=== PATIENT | male | born 1990 | race Caucasian/White ===

== ENCOUNTER 2022-01-27 14:15 | Emergency (ER) | payer OTHER ==
[2022-01-27 15:33] VITALS: BP 107/67
== END 2022-01-28 08:06 | disposition left against medical advice (07) ==
LOC: ED 14:15
DX: R06.02 Shortness of breath (principal); M54.2 Cervicalgia; Z53.21 Procedure and treatment not carried out due to patient leaving prior to being seen by health care provider